=== PATIENT | female | born 1975 | race Caucasian/White ===

== ENCOUNTER 2017-05-18 08:51 | Emergency (ER) | payer MEDICAID ==
[~2017-05-18] VITALS: Ht 160 cm; Wt 103.9 kg
[~2017-05-18 08:51] MED LIST: BUSP15TA PO; CLON-364 PO; SERT100T PO; TRAZ100T15 PO
[2017-05-18] MEDS ORDERED: KETOROLAC 30 MG/1 ML IM ONE (10:00)
[2017-05-18] MEDS ORDERED: OXYcodone/APAP 5/325MG TABLET PO ONE (10:00)
[2017-05-18] MEDS ORDERED: METHOCARBAMOL 750 MG TABLET PO ONE (10:00)
[2017-05-18] MEDS ORDERED: OXYcodone/APAP 5/325MG TABLET ONE (10:16)
[2017-05-18] MEDS ORDERED: KETOROLAC 30 MG/1 ML ONE (10:16)
[2017-05-18] MEDS ORDERED: METHOCARBAMOL 750 MG TABLET ONE (10:16)
[2017-05-18 10:47] VITALS: BP 128/73
== END 2017-05-18 10:50 | disposition home or self-care (01) ==
LOC: ED 10:18
DX: S39.012A Strain of muscle, fascia and tendon of lower back, initial encounter (principal); X58.XXXA Exposure to other specified factors, initial encounter; Y93.89 Activity, other specified; Y99.8 Other external cause status; Y92.89 Other specified places as the place of occurrence of the external cause
CPT/HCPCS: 96372; 99283; J1885

== ENCOUNTER → 2017-07-10 | Outpatient (CLI) | payer MEDICAID | END | disposition home or self-care (01) | LOC: CFH 07:13 | PROVIDERS: ATTEND Internal Medicine | DX: N93.9 Abnormal uterine and vaginal bleeding, unspecified (principal) | CPT/HCPCS: 76830 ==